=== PATIENT | female | born 1985 | race African-American/Black ===

== ENCOUNTER 2020-12-30 09:55 | Emergency (ER) | payer OTHER, SELFPAY ==
--- NOTE | ~2020-12-30 | XR_ITS ---
EXAMINATION: XR knee LT 3V DATE: 12/30/2020 10:50 INDICATION: Left knee pain TECHNIQUE: Three views of the left knee were obtained. COMPARISON: None. FINDINGS: Alignment is normal. No fracture or osteochondral lesion. There is mild osteoarthritis. A s mall joint effusion is present. Anterior soft tissue swelling is noted. IMPRESSION: 1. Small joint effusion without acute osseous abnormality. Reviewed, dictated and finalized at location A.
[2020-12-30 10:18] VITALS: BP 141/78; PULSE 69; RESP 16; TEMP 37; O2SAT 99
--- NOTE | 2020-12-30 10:27 | ED.LOWEXIN ---
HPI - Extremity Injury (Lower) General Chief Complaint: Extremity Injury, Lower Stated Complaint: L KNEE PAIN/SWELLING Time Seen by Provider: 12/30/20 10:32 Source: patient Mode of arrival: ambulatory Limitations: no limitations History of Present Illness HPI Narrative: Hina Dasilva is a 35 yo obese female with no prior PMH of left knee pain that has worsened over the last 5 days. She initially denied any known injury but agrees that she has had some leg swelling knee pain that she has been wearing compression stockings for is just worsened in the last couple days. She states that hurts to straighten her leg all the way out are bend it back too far. She also states that icing does hurt her knee Related Data Allergies Allergy/AdvReac Type Severity Reaction Status Date / Time No Known Allergies Allergy Unknown Verified 12/30/20 10:07 Review of Systems Review of Systems: Narrative: CONSTITUTIONAL: Denies fever, chills, sweats. EYES: Denies visual changes, redness, discharge. ENT: Denies rhinorrhea, congestion, sore throat, otalgia. CARDIOVASCULAR: Denies chest pain, palpitations, edema. RESPIRATORY: Denies dyspnea, wheezing, cough GASTROINTESTINAL: Denies abdominal pain, nausea, vomiting, diarrhea. GENITOURINARY: Denies dysuria, hematuria, abnormal discharge SKIN: Denies rash or itching. NEUROLOGIC: Denies numbness, or focal weakness. PSYCHIATRIC: Denies anxiety or depression. Left knee pain PMFSH Past Medical History Medical History Asthma As child Pinched nerve Surgical History Surgical History History of adenoidectomy As child History of ear surgery As child, due to busted ear drum Family History Family History Mother Family history of malignant neoplasm of breast in first degree relative Social History Social History Smoking status: Never smoker Alcohol intake: current Gender identity (if verbalized by the patient): Female Comments At time of signature, I agree with nursing past medical, surgical, social and family history. There is no relevant family history pertinent to the presenting complaint. Patient with pressure is elevated, should follow-up in the next day or 2 with her primary care doctor Should have follow-up with PCP for a blood pressure check, due to large arm, cuff is not able to go around her arm (large forearm also) so reading may not be accurate Exam Narrative: Exam Narrative: GENERAL: This is a well-nourished, well-developed patient, in mild distress. HEAD: normocephalic, atraumatic. EYES: . Sclera clear/white. Vision is grossly intact. EARS: External ears normal, Hearing grossly intact. NOSE: External nose normal without nasal discharge, nares without redness, no rhinorrhea. THROAT: Mucous membranes moist, NECK: Neck supple, CARDIOVASCULAR: Regular rate and rhythm without murmurs, gallops, or rubs. RESPIRATORY: Clear to auscultation. Breath sounds equal bilaterally. No wheezes, rales, or rhonchi. GASTROINTESTINAL: Abdomen soft, SKIN: warm, intact with no suspicious lesions or rash, good texture and turgor. NEURO: awake, alert, and oriented to person, place and time. There were no obvious focal neurologic abnormalities. Steady gait EXTREMITIES: Normal range of motion on R; leg does not appear to be swollen but has difficulty straightening it fully and is able to flex it to about 115 degrees states it hurts when she has an either position and points directly to the left superior pole of the patella and along the tibial plateau there is mild puffiness when she has her leg pulled BACK: Nontender without deformity Course Course Emergency Course: Patient came to [facility] with left knee pain that has been going on for couple weeks but is worse in the last 4 to 5 days
== END 2020-12-30 11:20 | disposition home or self-care (01) ==
PROVIDERS: Emergency Provider Nurse Practitioner; PCP Family Medicine
DX: M25.562 Pain in left knee (principal)
CPT/HCPCS: 73562; 99213; G0463; L1830

== ENCOUNTER 2023-03-04 11:16 | Emergency (ER) | payer OTHER, SELFPAY ==
--- NOTE | 2023-03-04 11:24 | ED.EXTPRO ---
HPI - Extremity Problem General Chief complaint: Extremity Problem,Nontraumatic Stated complaint: infected hangnail on rt middle finger Time Seen by Provider: 03/04/23 11:55 Source: patient and RN notes reviewed Mode of arrival: ambulatory Limitations: no limitations History of Present Illness HPI Narrative: 37-year-old female presents with concern of for an infection on the 3rd digit of her right hand. Reports she noticed the symptoms started last week. She has been using peroxide, Neosporin. Reports every once while she gets some purulent drainage from the area. MD Complaint: extremity pain Related Data Home Medications Medication Instructions Recorded Confirmed naproxen 250 mg tablet 250 mg PO BID PRN 02/06/21 04/11/21 Allergies Allergy/AdvReac Type Severity Reaction Status Date / Time No Known Allergies Allergy Unknown Verified 02/06/21 13:23 Review of Systems Review of Systems: CONSTITUTIONAL: Denies malaise, chills, sweats, or fever. EYES: Denies redness, or discharge. ENT: Denies rhinorrhea, congestion, swollen lips, swollen tongue CARDIOVASCULAR: Denies chest pain, palpitations, or edema. RESPIRATORY: Denies cough or dyspnea. GASTROINTESTINAL: Denies abdominal pain, nausea, vomiting SKIN: Reports infection to the 3rd digit of the right hand MUSCULOSKELETAL: Denies joint pain or myalgia. NEUROLOGIC: Denies headache. All systems reviewed & are unremarkable except as noted in HPI and below PMFSH Past Medical History Medical History (Updated 03/04/23 @ 12:02 by Estefany Moura NP) Allergies Asthma As child Obesity Osteoarthritis of left knee Pinched nerve Surgical History Surgical History History of adenoidectomy As child History of ear surgery As child, due to busted ear drum Family History Family History Mother Family history of malignant neoplasm of breast in first degree relative Social History Social History Smoking status: Never smoker Alcohol intake: current Living arrangements: with family Gender identity (if verbalized by the patient): Female Comments At time of signature, agree with nursing past medical, surgical, social and family history. There is no relevant family history pertinent to the presenting complaint Exam Narrative: GENERAL: Well-appearing, well-nourished, and in no acute distress. HEAD: Normocephalic, atraumatic. EYES: PERRLA, conjunctivae clear, and EOMI. ENT: Mucous membranes moist. NECK: Supple. No lymphadenopathy CHEST: Clear to auscultation. HEART: Regular rate and rhythm. SKIN: Warm, dry. Mild erythema, edema with small area of open skin noted near the nail bed of the 3rd digit of the right hand consistent with paronychia, no fluctuation noted, no drainage currently noted NEURO: Alert and oriented x3. PSYCH: Normal mood and affect Course Course Emergency Course: Patient is aware of diagnosis, understands and agrees to treatment plan. Anticipatory guidance given. Patient agrees to follow-up as directed and is aware of reasons to seek care at the emergency department. Portions of this record may have been created with voice recognition software Level of Care: Express Care Visit Vital Signs Vital signs: Reviewed. MDM - Extremity (Nontraumatic) MDM Narrative Medical decision making narrative: Exam findings show no acute concerns or changes; patient is non-toxic appearing and is in no distress. Patient is appropriate for outpatient treatment and follow-up. Differential Diagnosis Differential diagnosis: Likely cellulitis and other (Paronychia, felon) Critical Care Time Critical Care Time Critical Care Time: No Discharge Plan Discharge Clinical Impression: Paronychia Patient Disposition: Home, Self-Care Condition: Stable Instructions: Antibiotic For
[2023-03-04 11:26] VITALS: BP 132/98; PULSE 85; RESP 16; TEMP 36.6; O2SAT 100
== END 2023-03-04 12:09 | disposition home or self-care (01) ==
PROVIDERS: Emergency Provider Nurse Practitioner; PCP Family Medicine
DX: L03.011 Cellulitis of right finger (principal); E66.9 Obesity, unspecified; Z68.43 Body mass index [BMI] 50.0-59.9, adult; M17.12 Unilateral primary osteoarthritis, left knee
CPT/HCPCS: 99213; G0463

== ENCOUNTER 2023-08-19 09:50 | Outpatient (CLI) | payer OTHER, SELFPAY ==
[2023-08-19 14:34] LABS: Kit Draw Collected
== END 2023-08-19 09:51 | disposition home or self-care (01) ==
PROVIDERS: PCP Family Medicine; Visit Provider Family Medicine
DX: M79.89 Other specified soft tissue disorders (principal); E66.9 Obesity, unspecified; Z79.899 Other long term (current) drug therapy; Z83.438 Family history of other disorder of lipoprotein metabolism and other lipidemia
CPT/HCPCS: 36415

== ENCOUNTER 2023-09-10 08:08 | Outpatient (CLI) | payer OTHER, SELFPAY ==
--- NOTE | 2023-09-18 23:41 | WPDHOMESLEEP ---
Sleep Study - Home Unattended Date of Study: 09/10/23 Ordering Provider: Leta Bowen DO Interpreting Provider: Neda Ulloa MD Home Sleep Study Type: Watch PAT Height: 1.73 m Weight: 197.313 kg Body Mass Index: 66.1 Neck Circumference (inches): 18 [place]: 4 Reason for Sleep Study Leg swelling, loud snoring Sleep History Elida Dasilva is a 38-year-old woman with leg swelling and frequent loud snoring. She rarely awakens from sleep short of breath. She occasionally wakes at night with heartburn, belching or coughing.??She frequently snores, frequently snores loudly enough that others complain. She frequently has trouble sleeping when she has a cold. She never wakes up gasping for breath during the night. She never has breathing problems at night. She never sweats excessively at night. She never notices her heart pounding or beating irregularly during the night. She rarely falls asleep during the day. She never falls asleep involuntarily, never falls asleep while driving. She never experiences loss of muscle tone with strong emotion. She never feels paralyzed on waking or falling asleep. She never experiences vivid dreams upon waking or falling asleep. She never feels afraid of going to sleep. She never has nightmares. She occasionally recalls her dreams. She never has thoughts racing through her mind. She occasionally feels sad or depressed. She rarely feels anxiety. She never notices parts of her body jerk. She never kicks during the night. She rarely feels crawling or aching feelings in her legs. She rarely feels leg pain at night. She never has morning jaw pain, and never grinds her teeth at night. She rarely feels bothered by pain during the day, is never awakened by pain during the night. She never wakes up feeling stiff in the morning, never wakes feeling sore or achy in the morning. She rarely awakens with pain in her neck, spine, or joints. Normal bedtime is between 10:30 p.m. and 11:00 p.m., falling asleep quickly, waking once at night unless she is sick and then she may wake more often. At night while awake, she goes to the bathroom and returns to bed usually able to get did sleep within 5 minutes but sometimes taking up to 30 minutes. These awakenings occur in the middle of the night and in the early childhood worker hours. She reports getting about 8-9 hours of sleep at night. Her normal wake up time is between 7:00 a.m. and 7:30 a.m.. Her weekend hours of very. She does wake up later, somewhere between 8:30 a.m. and 10:00 a.m.. She does not generally take naps. She feels better in the morning and afternoon compared to other times of the day. She has occasional heartburn, asthma and seasonal allergies. Habits:??Tobacco: she has never smoked Caffeine: does not mention amount of caffeine Alcohol: yes, at times Recreational substances: none PMFSH Past Medical History Medical History Allergies Asthma As child Obesity Osteoarthritis of left knee Pinched nerve Surgical History Surgical History History of adenoidectomy As child History of ear surgery As child, due to busted ear drum Family History Family History Mother Family history of malignant neoplasm of breast in first degree relative Social History Social History Smoking status: Never smoker Alcohol intake: current Living arrangements: with family Gender identity (if verbalized by the patient): Female Medications Home Medications Medication Instructions Recorded Confirmed Type semaglutide 0.25 mg or 0.5 mg (2 0.25 mg (0.368 mL) subcut WEEKLY 08/25/23 09/11/23 Rx mg/3 mL) subcutaneous pen injector #3 mL (Ozempic) Sleep Procedure The sleep study was completed using Alexis a jennifer galindo
[2023-09-18 23:52] VITALS: BMI 66.1
== END 2023-09-11 09:39 | disposition home or self-care (01) ==
LOC: ANHCSM 08:09
PROVIDERS: PCP Family Medicine; Visit Provider Family Medicine
DX: G47.33 Obstructive sleep apnea (adult) (pediatric) (principal); R06.83 Snoring; R40.0 Somnolence
CPT/HCPCS: 95800

== ENCOUNTER 2023-09-25 07:34 | Outpatient (CLI) | payer OTHER, SELFPAY ==
--- NOTE | 2023-09-25 07:47 | ECHO_ITS ---
Patient Info Name: Elida Dasilva Age: 38 years : 1985 Gender: Female Ht: 68 in Wt: 436 lbs BSA: 3.21 m2 HR: 71 bpm BP: 122 / 80 mmHg Technical Quality: Fair Exam Date: 09/25/2023 8:02 AM Exam Location: Echo Lab Patient Status: Outpatient Admit Date: 09/25/2023 Staff Ordering Physician: Conor Hong DO Attending Provider: Conor Hong DO Referring Physician: Hal AYALA; Exam Type: CA echo doppler color flow Study Info Indications - soft tissue disorder Complete two-dimensional, color flow and Doppler transthoracic echocardiogram is performed. Summary 1. Complete two-dimensional, color flow and Doppler transthoracic echocardiogram is performed. 2. Left ventricular chamber dimension is normal. 3. Left ventricular systolic function is normal, estimated at 60-65%. 4. There is moderate concentric increased left ventricular wall thickness. 5. The left ventricular diastolic function is grade I diastolic dysfunction. 6. E/e' 8 is minimally elevated. 7. Left atrial chamber dimension is mildly enlarged. 8. There is mild mitral valve regurgitation. 9. There is mild to moderate tricuspid valve regurgitation. 10. No pulmonary hypertension, estimated pulmonary arterial systolic pressure is 38 mmHg. 11. There is trace pulmonic regurgitation. Left Ventricle E/e' 8 is minimally elevated. The left ventricular diastolic function is grade I diastolic dysfunction. Left ventricular chamber dimension is normal. Left ventricular systolic function is normal, estimated at 60-65%. There is moderate concentric increased left ventricular wall thickness. Right Ventricle Right ventricular systolic function is normal and with normal TAPSE 1.8 cm. Right ventricular chamber dimension is normal. Left Atria Left atrial chamber dimension is mildly enlarged. Right Atria Right atrial chamber dimension is normal. Aortic Valve The aortic valve is trileaflet. There is no aortic valve stenosis. There is no aortic valve regurgitation. Pulmonic Valve There is trace pulmonic regurgitation. Mitral Valve There is no mitral valve stenosis. There is mild mitral valve regurgitation. Tricuspid Valve There is mild to moderate tricuspid valve regurgitation. No pulmonary hypertension, estimated pulmonary arterial systolic pressure is 38 mmHg. Pericardium/Pleural There is no pericardial effusion. Inferior Vena Cava Normal inferior vena cava with >50% collapse upon inspiration consistent with normal right atrial pressure, 5 mmHg. Aorta The aortic root size at the sinus of Valsalva is normal. Left Ventricular Outflow Tract Name Value Normal LVOT 2D LVOT Diameter 2.1 cm LVOT Doppler LVOT Peak Gradient 4 mmHg LVOT Mean Gradient 2 mmHg LVOT VTI 25 cm LVOT VTI/AV VTI Ratio 0.7 LVOT Stroke Volume 88 ml LVOT CO 5.9 l/min LVOT CI 1.8 l/min/m2 Pulmonic Valve Name Value Normal
== END 2023-09-25 07:35 | disposition home or self-care (01) ==
LOC: ANHCARD 07:38
PROVIDERS: PCP Family Medicine; Visit Provider Internal Medicine Cardiovascular Disease
DX: M79.89 Other specified soft tissue disorders (principal); R93.1 Abnormal findings on diagnostic imaging of heart and coronary circulation; I34.0 Nonrheumatic mitral (valve) insufficiency; I07.1 Rheumatic tricuspid insufficiency; I37.1 Nonrheumatic pulmonary valve insufficiency
CPT/HCPCS: 93306

== ENCOUNTER 2023-11-07 08:24 | Outpatient (CLI) | payer OTHER, SELFPAY ==
--- NOTE | 2023-11-28 14:52 | WPDSLEEPSTUD ---
Sleep Study Date of Study: 11/07/23 Ordering Provider: Leta Bowen DO Interpreting Physician: Neda Ulloa MD Sleep Study Type: CPAP Titration Height: 1.73 m Weight: 195.045 kg Body Mass Index: 65.3 Neck Circumference (inches): 18 [place]: 4 Reason for Sleep Study * 09/10/2023- home sleep test with WatchPat showing extremely severe obstructive sleep apnea, apnea-hypopnea index 107.6, desaturation to 66% with sustained hypoxemia and loud snoring. She presents for a CPAP titration. Sleep History Elida Dasilva is a? 38-year-old woman with? leg swelling and frequent loud snoring.? She rarely awakens from sleep short of breath.? She occasionally wakes at night with heartburn, belching or coughing.??She frequently snores, frequently snores loudly enough that others complain. She frequently has trouble sleeping when she has a cold.? She never wakes up gasping for breath during the night. She never has breathing problems at night. She never sweats excessively at night. She never notices her heart pounding or beating irregularly during the night.? She rarely falls asleep during the day.? She? never falls asleep involuntarily, never falls asleep while driving. She? never experiences loss of muscle tone with strong emotion.? She never feels paralyzed on waking or falling asleep. She never experiences vivid dreams upon waking or falling asleep. She never feels afraid of going to sleep. She never has nightmares. She occasionally recalls her dreams. She never has thoughts racing through her mind. She occasionally feels sad or depressed. She rarely feels anxiety. She? never notices parts of her body jerk.? She never kicks during the night. She rarely feels crawling or aching feelings in her legs. She rarely feels leg pain at night. She never has morning jaw pain, and never grinds her teeth at night.? She rarely feels bothered by pain during the day, is never awakened by pain during the night. She never wakes up feeling stiff in the morning,? never wakes feeling sore or achy in the morning.? She rarely awakens with pain in her neck, spine, or joints. Normal bedtime is? between 10:30 p.m. and 11:00 p.m., falling asleep? quickly, waking? once at night unless she is sick and then she may wake more often.? At night while awake, she goes to the bathroom and returns to bed usually able to get did sleep within 5 minutes but sometimes taking up to 30 minutes.? These awakenings occur in the middle of the night and in the transportation maintenance worker hours. ? She reports getting about 8-9 hours of sleep at night.? Her normal wake up time is between 7:00 a.m. and 7:30 a.m..? Her weekend hours of very.? She does wake up later, somewhere between 8:30 a.m. and 10:00 a.m..? She does not generally take naps.? She feels better in the morning and afternoon compared to other times of the day.? She has occasional heartburn, asthma and seasonal allergies. Habits:??Tobacco:? she has never smoked? ? Caffeine: does not mention amount of caffeine ? Alcohol: yes, at times ? ? Recreational substances: none PMFSH Past Medical History Medical History (Updated 11/28/23 @ 15:08 by Neda Ulloa MD) Allergies Asthma As child Obesity Obstructive sleep apnea Osteoarthritis of left knee Pinched nerve Surgical History Surgical History History of adenoidectomy As child History of ear surgery As child, due to busted ear drum Family History Family History Mother Family history of malignant neoplasm of breast in first degree relative Social History Social History Smoking status: Never smoker Alcohol intake: current Living arrangements: with family Gender identity (if verbalized by the patient): Female Medications Home Medications Medication Instructions Recorded Confirmed Type No Home Medications 10/21/2310/06
[2023-11-28 15:07] VITALS: BMI 65.3
== END 2023-11-08 06:37 | disposition home or self-care (01) ==
LOC: ANHCSM 08:25
PROVIDERS: PCP Family Medicine; Visit Provider Family Medicine
DX: G47.33 Obstructive sleep apnea (adult) (pediatric) (principal); E66.9 Obesity, unspecified; Z68.44 Body mass index [BMI] 60.0-69.9, adult
CPT/HCPCS: 95811

== ENCOUNTER 2024-10-21 09:42 | Outpatient (CLI) | payer MEDICAID, SELFPAY ==
[2024-10-21 11:19] LABS: Hematocrit 39.3 % (37.0-47.0); Hemoglobin 12.3 g/dL (12.0-15.0); Mean Corpuscular HGB Conc 31.3 g/dl (32-36); Mean Corpuscular Volume 89.5 fl (80-100); Mean Platelet Volume 9.9 fl (7.4-10.4); Platelet Count Result 313 k/mm3 (150-375); Red Blood Count 4.39 M/mm3 (4.2-5.4); White Blood Count 7.3 K/mm3 (4.5-10.0)
[2024-10-21 11:43] LABS: Alanine Aminotransferase 17 U/L (6-35); Albumin Level 3.8 g/dL (3.5-5.1); Alkaline Phosphatase 100 U/L (38-126); Anion Gap 4 mmol/L (4-12); Aspartate Amino Transferase 25 U/L (14-36); Blood Urea Nitrogen 11 mg/dL (7-17); Calcium 8.2 mg/dL (8.4-10.2); Carbon Dioxide 29 mmol/L (22-30); Chloride 105 mmol/L (98-107); Cholesterol 145 mg/dL (0-200); Estimated Glomerular Filt Rate > 60; Glucose 92 mg/dL (65-110); HDL Direct 53 mg/dL; Potassium 4.1 mmol/L (3.4-5.0); Sodium 138 mmol/L (137-145); Triglycerides 57 mg/dL (<150)
[2024-10-21 11:47] LABS: LDL Cholesterol Direct 66 mg/dL
[2024-10-21 12:05] LABS: Thyroid Stimulating Hormone 0.793 uIU/mL (0.465-4.680)
== END 2024-10-21 09:43 | disposition home or self-care (01) ==
LOC: ANHGOSHLAB 09:43
PROVIDERS: PCP Family Medicine; Visit Provider Family Medicine
DX: E66.9 Obesity, unspecified (principal); Z79.899 Other long term (current) drug therapy; Z83.438 Family history of other disorder of lipoprotein metabolism and other lipidemia
CPT/HCPCS: 36415; 80053; 80061; 84443; 85027

== ENCOUNTER 2025-04-19 09:08 | Outpatient (CLI) | payer BC, SELFPAY ==
[2025-04-19 15:01] LABS: Hematocrit 41.6 % (37.0-47.0); Hemoglobin 12.8 g/dL (12.0-15.0); Mean Corpuscular HGB Conc 30.8 g/dl (32-36); Mean Corpuscular Hemoglobin 27.5 pg (26-34); Mean Corpuscular Volume 89.5 fl (80-100); Platelet Count Result 327 k/mm3 (150-375); Red Blood Count 4.65 M/mm3 (4.2-5.4); White Blood Count 6.0 K/mm3 (4.5-10.0)
[2025-04-19 15:06] LABS: Alanine Aminotransferase 22 U/L (6-35); Albumin Level 4.2 g/dL (3.5-5.1); Alkaline Phosphatase 106 U/L (38-126); Anion Gap 8 mmol/L (4-12); Aspartate Amino Transferase 34 U/L (14-36); Bilirubin,Total 0.8 mg/dL (0.2-1.3); Blood Urea Nitrogen 13 mg/dL (7-17); Calcium 9.2 mg/dL (8.4-10.2); Carbon Dioxide 27 mmol/L (22-30); Chloride 102 mmol/L (98-107); Estimated Glomerular Filt Rate > 60; Glucose 91 mg/dL (65-110); Potassium 4.1 mmol/L (3.4-5.0); Sodium 137 mmol/L (137-145); Total Protein 8.6 g/dL (6.3-8.2)
== END 2025-04-19 09:09 | disposition home or self-care (01) ==
LOC: ANHGOSHLAB 09:09
PROVIDERS: PCP Family Medicine; Visit Provider Nurse Practitioner
DX: R42 Dizziness and giddiness (principal)
CPT/HCPCS: 36415; 80053; 85027